=== PATIENT | female | born 1975 | race Caucasian/White ===

== ENCOUNTER → 2018-03-20 | Outpatient (CLI) | payer OTHER ==
[~2018-03-20] MED LIST: ALBU8.5H12 IH; CEP500 PO; DOC100 PO; ESTROGEN PATCH; HYDR-3078 PO; LOR5 PO; METH1TAB65 PO; MINOCY50PT PO; PRO25 PO; TAM4 PO; TOLT4CAP13 PO; TRA50 PO
--- NOTE | 2018-03-23 09:56 | RADIOLOGY IMAGING REPORT ---
FACILITY: [facility] [place] PATIENT NAME: SANTA OSMAN : [id number] MR: [id number] V: [id number] EXAM DATE: [id number] ORDERING PHYSICIAN: JAC CLEARY TECHNOLOGIST: Teresa Levin PROCEDURE:BILATERAL DIGITAL SCREENING MAMMOGRAM WITH CAD ASSISTED INTERPRETATION & 3D TOMOSYNTHESIS COMPARISON:None. INDICATIONS:SCREENING FINDINGS: Moderately dense fibroglandular tissue is seen throughout the breasts. In the lateral portion Right breast on the Right CC view is a focal asymmetry for which Spot compression view is recommended. DIAGNOSTIC CATEGORY 0--INCOMPLETE: NEED ADDITIONAL IMAGING EVALUATION. RECOMMENDATIONS: ADDITIONAL MAMMOGRAPHIC VIEWS REQUIRED: RIGHT BREAST. IMPRESSION: BIRADS 0: Incomplete Additional views of the Right breast recommended as described. Dictated by: Ivonne Chatman M.D. on 03/20/2018 at 15:28 Transcribed by: [email or web address] on 03/20/2018 at 15:31 Approved by: Ivonne Chatman M.D. on 03/23/2018 at 9:55 [facility]
== END ==
LOC: MAMO 03:37
PROVIDERS: ATTEND Nurse Practitioner Family
DX: Z12.31 Encounter for screening mammogram for malignant neoplasm of breast (principal); R92.8 Other abnormal and inconclusive findings on diagnostic imaging of breast
CPT/HCPCS: 77063; 77067

== ENCOUNTER → 2018-04-03 | Outpatient (CLI) | payer OTHER ==
--- NOTE | 2018-04-03 15:56 | RADIOLOGY IMAGING REPORT ---
FACILITY: [facility] PATIENT NAME: SANTA OSMAN : [id number] MR: [id number] V: [id number] EXAM DATE: [id number] ORDERING PHYSICIAN: JAC CLEARY TECHNOLOGIST: Teresa Levin PROCEDURE:RIGHT DIGITAL DIAGNOSTIC MAMMOGRAM WITH 3D TOMOSYNTHESIS COMPARISON:Prior mammograms 03/20/18 INDICATIONS:FURTHER EVAL FINDINGS: The patient returned for a Spot compression view in the Right CC projection with 3D Tomosynthesis in addition to rolled Right CC view. The focal area of asymmetry in the lateral portion of the Right breast on the previous Right CC view appeared compressible and apparently represented a summation shadow. There was no demonstration of malignant appearing mass or calcification in the Right breast. DIAGNOSTIC CATEGORY 2--BENIGN FINDING. RECOMMENDATIONS: ROUTINE MAMMOGRAM AND CLINICAL EVALUATION. IMPRESSION: BIRADS 2: Benign finding No significant abnormality is seen. Dictated by: Ivonne Chatman M.D. on 04/03/2018 at 15:26 Transcribed by: [email or web address] on 04/03/2018 at 15:38 Approved by: Ivonne Chatman M.D. on 04/03/2018 at 15:56 [facility]
== END ==
LOC: MAMO 02:12
PROVIDERS: ATTEND Nurse Practitioner Family
DX: R92.2 Inconclusive mammogram (principal)
CPT/HCPCS: 77061; 77065